=== PATIENT | male | born 1965 | race Caucasian/White ===

== ENCOUNTER 2022-04-19 16:31 | Day surgery (SDC) | payer BC ==
[~2022-04-19] VITALS: Ht 193 cm; Wt 192.0 kg
[2022-04-19] VITALS (8 sets, daily range): BP systolic 84–114; BP diastolic 43–82
--- NOTE | 2022-04-19 17:22 | ED Abdominal Pain ---
General Chief Complaint: Abdominal/GI Problems Stated Complaint: RLQ PAIN Nursing Triage Note: SENT HERE FROM [facility] WITH APPENDICIITS. PT STATES THEY JUST WEIGHED HIM AT [facility] AT 424# Source of Information: Patient Exam Limitations: No Limitations History of Present Illness Date Seen by Provider: Apr 19, 2022 Time Seen by Provider: 16:40 Initial Comments This is a well-appearing 56-year-old male who was referred to the emergency department from [facility] for acute appendicitis. Patient states that he started developing diarrhea on 04/16/2022 that progressed to pain in his right lower quadrant. He had outpatient imaging and labs and was found to have appendicitis. Last solid food yesterday, did drink small sip of water en- route to hospital. Allergies and Home Medications Allergies Coded Allergies: No Known Drug Allergies (Unverified , 04/19/22) Patient Home Medication List Home Medication List Reviewed: Yes Amoxicillin/Potassium Clav (Augmentin 500-125 Tablet) 500 Mg-125 Mg Tablet, 1 EACH PO TID Prescribed by: CHRISTINA ERWIN on 04/19/221955 Hydrocodone Bit/Acetaminophen (HYDROcodone/APAP 10/325 TABLET) 1 Ea Tab, 1 TAB PO Q6H Prescribed by: CHRISTINA ERWIN on 04/19/221951 Review of Systems Review of Systems Constitutional: see HPI Gastrointestinal: See HPI Past Udxpvae-Lzusds-Gnlnap Hx Patient Social History Tobacco Use?: Yes Tobacco type used: Cigarettes Smoking Status: Current Everyday Smoker Substance use?: No Alcohol Use?: Yes Alcohol type: Beer Alcohol Frequency: Couple times a week Immunizations Up To Date First/Initial COVID19 Vaccinat: UNKNOWN COVID19 Vaccine Child Welfare Specialist: UNKNOWN Physical Exam Vital Signs Capillary Refill : Less Than 3 Seconds Height/Weight/BMI Height: '" Weight: lbs. oz. kg; 51.00 BMI Method: General Appearance: WD/WN, no apparent distress, obese HEENT: PERRL/EOMI, normal ENT inspection Neck: full range of motion, normal inspection Respiratory: lungs clear, normal breath sounds, no respiratory distress Cardiovascular: regular rate, rhythm, no murmur Gastrointestinal: normal bowel sounds, soft, rebound Extremities: normal range of motion, normal inspection Back: normal inspection Neurologic/Psychiatric: no motor/sensory deficits, alert, normal mood/affect, oriented x 3 Skin: normal color, warm/dry Progress/Results/Core Measures Results/Orders Lab Results Laboratory Tests Test 04/19/22 17:39 Range/Units Sodium Level 131 L 135-145 MMOL/L Potassium Level 3.9 3.6-5.0 MMOL/L Chloride Level 97 L 98-107 MMOL/L Carbon Dioxide Level 21 21-32 MMOL/L Anion Gap 13 5-14 MMOL/L Blood Urea Nitrogen 25 H 7-18 MG/DL Creatinine 1.39 H 0.60-1.30 MG/DL Estimat Glomerular Filtration Rate 59 BUN/Creatinine Ratio 18 Glucose Level 123 H 70-105 MG/DL Calcium Level 9.6 8.5-10.1 MG/DL Corrected Calcium 9.4 8.5-10.1 MG/DL Total Bilirubin 1.7 H 0.1-1.0 MG/DL Aspartate Amino Transf (AST/SGOT) 29 5-34 U/L Alanine Aminotransferase (ALT/SGPT) 28 0-55 U/L Alkaline Phosphatase 58 40-136 U/L Total Protein 7.7 6.4-8.2 GM/DL Albumin 4.2 3.2-4.5 GM/DL My Orders Orders - ANDI GARCÍA ROOFING TECHNICIAN Ed Iv/Invasive Line Start (04/19/22 16:53) Comprehensive Metabolic Panel (04/19/22 17:35) Lidocaine/Epi Mpf 2% 1:200,000 (Xylocain (04/19/22 17:35) Vital Signs/I&O Blood Pressure Mean: 96 Progress Progress Note : Progress Note Review of chart and outpatient CT abd/pelvis: [facility], [place] NAME: HÉCTOR GIFFORD [facility] REC#: [id number] PT STATUS: REG CLI : 1965 PHYSICIAN: ROXY TUTTLE ROOFING TECHNICIAN ADMIT DATE: 04/19/22/RAD FS Signed Date of Exam:04/19/22 CT ABDOMEN/PELVIS WO PROCEDURE: CT abdomen and pelvis without contrast. TECHNIQUE: Multiple contiguous axial images were obtained through the abdomen and pelvis without the use of intravenous contrast. Auto Exposure Controls were utilized during the CT exam to meet ALARA standards for radiation dose reduction. INDICATION: Right lower quadrant pain. COMPARISON: I have no priors. FINDINGS: Appendix is prominent with some wall thickening. Its outer wall to outer wall diameter is maximal 17 mm. Within its lumen, there is an appendicolith measuring 8 mm. The appendix arises off the medial aspect of the caudal pole of the cecum distally, directed superomedial. No extraluminal gas is present. There is stranding and infiltration of the periappendiceal fat. The overall findings are consistent with acute appendicitis. There is no abscess or drainable fluid collection. Patient does have a tiny amount of pelvic free fluid, nonloculated, dependently. There is no free intraperitoneal air, and there is no resultant bowel obstruction. There are no opaque kidney stones. There is no hydroureteronephrosis. Liver, gallbladder, bile ducts, spleen, adrenals, and pancreas are all unremarkable. The aorta is nonaneurysmal. Bony structures and lung bases are nonacute. IMPRESSION: 1. Findings most consistent with acute appendicitis with an associated appendicolith and small volume pelvic free fluid, but no abscess, bowel obstruction, or free intraperitoneal air. 2. No other acute appearing abnormalities. Dictated by: Dictated on workstation # [id number] Dict: 04/19/22 1541 Trans: 04/19/22 1726 [id number] Interpreted by: ANNE-MARIE CATALAN Electronically signed by: ANNE-MARIE CATALAN 04/19/22 1726 Departure Communication (Admissions) Time/Spoke to Admitting Phy: 16:55 Dr. Erwin notified at this time. Impression Primary Impression: Appendicitis Disposition: ADMITTED INPATIENT Condition: Stable Admissions Decision to Admit Reason: Admit from ER (General) Decision to Admit/Date: Apr 19, 2022 Time/Decision to Admit Time: 16:48 Departure-Patient Inst. Referrals: [facility]/ (PCP) Primary Care Physician ROXY TUTTLE APRN (Family) Primary Care Physician Scripts Amoxicillin/Potassium Clav (Augmentin 500-125 Tablet) 500 Mg-125 Mg Tablet 1 EACH PO TID, #21 TAB Prov: CHRISTINA ERWIN DO 04/19/22 Hydrocodone Bit/Acetaminophen (HYDROcodone/APAP 10/325 TABLET) 1 Ea Tab 1 TAB PO Q6H for PAIN-MODERATE MDD 5, #20 TAB 0 Refills Prov: CHRISTINA ERWIN DO 04/19/22 ANDI GARCÍA APRN Apr 19, 2022 17:22
[2022-04-19] MEDS ORDERED: LIDOCAINE/EPI 2% 1:200,00 (XYLOCAINE) 20 ML VIAL ONE (17:35)
[2022-04-19] MEDS ORDERED: KETOROLAC 30 MG/ML VIAL IVP ONE (17:45)
[2022-04-19 17:47] LABS: ALBUMIN 4.2 GM/DL (3.2-4.5)
[2022-04-19 17:48] LABS: POTASSIUM 3.9 MMOL/L (3.6-5.0)
[2022-04-19 17:49] LABS: CALCIUM 9.6 MG/DL (8.5-10.1)
[2022-04-19 17:50] LABS: TOTAL PROTEIN 7.7 GM/DL (6.4-8.2)
[2022-04-19 17:52] LABS: BILIRUBIN,TOTAL 1.7 MG/DL (0.1-1.0)
[2022-04-19 17:54] LABS: CREATININE SERUM 1.39 MG/DL (0.60-1.30)
[2022-04-19] MEDS: LACTATED RINGERS 1,000 ML IV PRN ×3 (18:00→19:24)
--- NOTE | 2022-04-19 18:02 | Consultation - Surgery ---
History of Present Illness History of Present Illness Patient Consulted On(yana/time) 04/19/22 17:57 Time Seen by Provider: 17:46 History of Present Illness Surgery asked to consult for RLQ pain. HPI per ED: This is a well-appearing 56-year-old male who was referred to the emergency department from [facility] for acute appendicitis. Patient states that he started developing diarrhea on 04/16/2022 that progressed to pain in his right lower quadrant. When I spoke to pt he stated the pain started on Sunday in the RLQ, was sharp but not constant. He stated the pain was 6-7 out of 10 and he could not lay on right side. Pain then became constant and all across the lower abdomen, but it is only 5 out of 10. He denied any nausea or vomiting. Movement made pain worse and laying still made it better. Allergies and Home Medications Allergies Coded Allergies: No Known Drug Allergies (Unverified , 04/19/22) Patient Home Medication List Home Medication List Reviewed: Yes (Lisinopril, HCTZ, Meloxicam, Citalopram) Past Xhhrqhm-Fbuocj-Vwtzgu Hx Patient Social History Smoking Status: Current Everyday Smoker Alcohol Use?: Yes (Tequila 750ml on weekend) Have you traveled recently?: No Surgeries History of Surgeries: Yes ([place] teeth removal) Respiratory History of Respiratory Disorde: No Cardiovascular History of Cardiac Disorders: Yes Cardiac Disorders: Hypertension Neurological History of Neurological Disord: No Genitourinary History of Genitourinary Disor: No Gastrointestinal History of Gastrointestinal Di: Yes Gastrointestinal Disorders: Gastroesophageal Reflux Musculoskeletal History of Musculoskeletal Dis: Yes Musculoskeletal Disorders: Arthritis, Chronic Back Pain Endocrine History of Endocrine Disorders: No HEENT History of HEENT Disorders: No Loss of Vision: Denies Hearing Impairment: Denies Cancer History of Cancer: No Integumentary History of Skin or Integumenta: No Family Medical History Significant Family History: Hypertension (Mother and Father) Review of Systems-General Constitutional: No chills, No diaphoresis; fever, malaise EENTM: No blurred vision, No double vision, No mouth swelling, No epistaxis Respiratory: No cough, No dyspnea on exertion, No short of breath Cardiovascular: No chest pain, No palpitations Gastrointestinal: abdominal pain (RLQ); No jaundice; loss of appetite; No nausea, No vomiting Genitourinary: No dysuria, No frequency, No hematuria Musculoskeletal: back pain, joint pain, joint swelling Skin: No change in color, No change in hair/nails Psychiatric/Neurological: Anxiety, Depressed; Denies Seizure, Denies Tremors Physical Exam-General Problems Physical Exam Vital Signs Vital Signs - First Documented 04/19/22 16:40 Temp 37.7 Pulse 105 Resp 16 B/P (MAP) 134/77 (96) Pulse Ox 94 O2 Delivery Room Air Capillary Refill : Less Than 3 Seconds General Appearance: no apparent distress, obese (super morbidly obese) Eyes: Bilateral Eye PERRL, Bilateral Eye EOMI HEENT: pharynx normal; No scleral icterus (R), No scleral icterus (L) Neck: non-tender, supple Respiratory: lungs clear, normal breath sounds, no respiratory distress, no accessory muscle use Cardiovascular: regular rate, rhythm, no murmur Gastrointestinal: soft, no organomegaly, tenderness, hernia (small umbilical) Back: no CVA tenderness, no vertebral tenderness Extremities: non-tender, no pedal edema, no calf tenderness Neurologic/Psychiatric: powder blender and pourer II-XII nml as tested, alert, normal mood/affect, oriented x 3 Skin: normal color, warm/dry Lymphatic: no adenopathy (neck, axilla or groin) Data Review Labs Laboratory Tests 04/19/22 17:39: Sodium Level 131L, Potassium Level 3.9, Chloride Level 97L, Carbon Dioxide Level 21, Anion Gap 13, Blood Urea Nitrogen 25H, Creatinine 1.39H, Estimat Glomerular Filtration Rate 59, BUN/Creatinine Ratio 18, Glucose Level 123H, Calcium Level 9.6, Corrected Calcium 9.4, Total Bilirubin 1.7H, Aspartate Amino Transf (AST/SGOT) 29, Alkaline Phosphatase 58, Total Protein 7.7, Albumin 4.2 Radiology Date of Exam:04/19/22 CT ABDOMEN/PELVIS WO PROCEDURE: CT abdomen and pelvis without contrast. TECHNIQUE: Multiple contiguous axial images were obtained through the abdomen and pelvis without the use of intravenous contrast. Auto Exposure Controls were utilized during the CT exam to meet ALARA standards for radiation dose reduction. INDICATION: Right lower quadrant pain. COMPARISON: I have no priors. FINDINGS: Appendix is prominent with some wall thickening. Its outer wall to outer wall diameter is maximal 17 mm. Within its lumen, there is an appendicolith measuring 8 mm. The appendix arises off the medial aspect of the caudal pole of the cecum distally, directed superomedial. No extraluminal gas is present. There is stranding and infiltration of the periappendiceal fat. The overall findings are consistent with acute appendicitis. There is no abscess or drainable fluid collection. Patient does have a tiny amount of pelvic free fluid, nonloculated, dependently. There is no free intraperitoneal air, and there is no resultant bowel obstruction. There are no opaque kidney stones. There is no hydroureteronephrosis. Liver, gallbladder, bile ducts, spleen, adrenals, and pancreas are all unremarkable. The aorta is nonaneurysmal. Bony structures and lung bases are nonacute. IMPRESSION: 1. Findings most consistent with acute appendicitis with an associated appendicolith and small volume pelvic free fluid, but no abscess, bowel obstruction, or free intraperitoneal air. 2. No other acute appearing abnormalities. Dictated by: Dictated on workstation # [id number] Dict: 04/19/22 1541 Trans: 04/19/22 1726 [id number] Interpreted by: ANNE-MARIE CATALAN Electronically signed by: ANNE-MARIE CATALAN 04/19/22 1726 Assessment/Plan Assessment/Plan Assessment/Plan Acute Appendicitis I reviewed the CT and discussed case with ER provider. He has an appendicolith and significant inflammation around the appendix; this is definitely acute appendicitis. Patient needs an appendectomy, would plan Laparoscopic Appendectomy possible open. Will get consent, start IV fluids, IV ABX data collection technician to OR, pain meds and anti-emetics as needed. Went over risks and complications not limited to pain, bleeding, infection, scar, damage to bowel and need for further procedure. All questions answered to his and his 's satisfaction. CHRISTINA ERWIN DO Apr 19, 2022 18:02
[2022-04-19] MEDS ORDERED: SEVOFLURANE (ULTANE) 15 ML INHAL SOLN ONE ×2 (18:11→19:43)
[2022-04-19] MEDS ORDERED: LIDOCAINE PF 2% 5 ML (XYLOCAINE) VIAL ONE (18:11)
[2022-04-19] MEDS ORDERED: proPOfol 200 MG/20 ML (DIPRIVAN) VIAL IV ONE (18:11)
[2022-04-19] MEDS ORDERED: ROCURONIUM 50 MG/5 ML (ZEMURON) VIAL IV ONE ×2 (18:11→18:45)
[2022-04-19] MEDS ORDERED: fentaNYL INJ 250 MCG/5 ML AMP ONE (18:12)
[2022-04-19] MEDS ORDERED: MIDAZOLAM 2 MG/2 ML (VERSED) VIAL ONE (18:12)
[2022-04-19] MEDS ORDERED: ceFAZolin INJECTION 3,000 MG ONE (18:14)
[2022-04-19] MEDS ORDERED: ceFAZolin INJECTION 1,000 MG VIAL IV ONE ×2 (18:15)
[2022-04-19] MEDS ORDERED: NEOSTIGMINE (BLOXIVERZ ) 1 MG/1ML 10 ML VIAL ONE (18:57)
[2022-04-19] MEDS ORDERED: GLYCOPYRROLATE 0.2 MG/ML (ROBINUL) 2 ML VIAL ONE (18:57)
--- NOTE | 2022-04-19 19:51 | Progress Note-Post Operative ---
Post-Operative Progess Note Surgeon (s)/Electrician'S Assistant (s) Surgeon CHRISTINA ERWIN DO Electrician'S Assistant: SAI Chao Pre-Operative Diagnosis Acute Appendicitis Post-Operative Diagnosis Perforated appendicitis Procedure & Operative Findings Date of Procedure 04/19/22 Procedure Performed/Findings PROCEDURE: Laparoscopic appendectomy. COMPLICATIONS: None. INDICATIONS: The patient is a 56 year old male who has been having right lower quadrant abdominal pain. Patient's exam consistent with appendicitis. I discussed risk and benefits of laparoscopic appendectomy and all indicated procedures. The patient understands the risks and benefits and wishes to proceed. Consent was signed on the chart. DESCRIPTION OF PROCEDURE: The patient was taken to the operating suite, prepped and draped in a sterile fashion. Timeout was performed. Local anesthetic was infiltrated just above the umbilicus and 11-blade scalpel was used to make a skin incision. Cautery was used to dissect down to the fascia and scored. Kochers were used to grasp and elevate it and the abdomen was then entered. A 0 Vicryl was placed in a [id number] fashion for closure at the end of the case. The balloon trocar was inserted into the abdomen and pneumoperitoneum was achieved. Under direct visualization of the laparoscope, a 5 mm trocar was placed in the suprapubic region and a 5 mm trocar was placed in the left lower quadrant. Appendix was located, under omentum, terminal ileum and cecum. Noted fibrinous material. While moving everything aside encountered small amout of fecal material and then found hole in appendix. The base of the appendix was dissected around. Once at the base an Endo-SILVERIO 2.5 stapler was then fired across the base of the appendix. The mesoappendix was then divided. It was then placed in an Endobag and removed through the 12 mm trocar site. The abdomen was then copiously irrigated and suctioned. No other pathology noted. Elected to place a YULIA drain in the right colic gutter and brought it out through the supra-pubic incision. It was sutured in place with a 2-0 Nylon suture. The abdomen was then desufflated and the trocars were removed. The 0 Vicryl placed at the beginning of the case was then tied closing the 12 mm fascial defect. The skin was then closed using 4-0 Monocryl in a subcuticular fashion. The abdomen was then washed and dried and Skin Affix was placed over the incisions. The patient tolerated the procedure well without any complications and was taken to the recovery room in stable condition. Proximal portion of appendix was not great tissue and the cecum had a lot of fibrinous material on it. It looked ok, but it is mildly concerning. Anesthesia Type GET Estimated Blood Loss Estimated blood loss (mL): scant Specimens/Packing Specimens Removed appendix CHRISTINA ERWIN DO Apr 19, 2022 19:51
[2022-04-19] MEDS ORDERED: ACHYD1T PO (19:52)
--- NOTE | 2022-04-19 19:53 | Discharge Inst-Surgical ---
Discharge Inst-Surgical Depart Medication/Instructions New, Converted or Re-Newed RX: Transmitted to Pharmacy Patient Instructions Follow up Appt: Make appointment for 1 week. [phone] Instructions: No lifting greater than 20 pounds. No strenuous activity. May shower in 24 hours, no tub bath or soaking. Use incentive spirometer at home as directed. No Smoking Skin/Wound Care: May remove bandages in am. You need to leave the Dermabond on incision it will fall off on it's own. Symptoms to Report: Appetite Changes, Extremity Discoloration, Numbness/Tingling, Swelling Increased, Bleeding Excessive, Eyesight Changes, Pain Increased, Urine Color Change, Constipation(Persistent), Fever over 101 degree F, Pain/Pressure in chest, Urinating Difficulty, Cough Up/Vomit Blood, Heart Beat Irreg/Pounding, Pain/Pressure in jaw, Cramps in feet or legs, Lightheadedness, Pain/Pressure in shoulder, Diarrhea(Persistent), Memory Changes Suddenly, Questions/Concerns, Weight gain consecutive days, Dizziness/Fainting, Nausea/Vomiting, Shortness of Breath, Weight gain over 2 pounds If questions or concerns contact your physician Or seek help at emergency department. Activity Activity as Tolerated: Yes Activity Instructions: Avoid Stress to Incision Driving Instructions: No Driving/Refer to Dr. Mann Discharge Diet: No Restrictions Diet After 24 Hours: Clear Liquid if Nauseous If Any Problems/Questions/Issu: Contact Your Physician, Go to Emergency Room Skin/Wound Care Infection Signs and Symptoms: Increased Redness, Foul Odor of Wound, Increased Drainage, Skin Itchy or Has a Rash, Increased Swelling, Temperature Above 101 F Wound Care Comment: heating pad to shoulder or neck tonight for pain. YULIA drain teaching Bathing Instructions: Shower Stitches/Star/Dermabond Dis: Dermabond CHRISTINA ERWIN DO Apr 19, 2022 19:53
[2022-04-19] MEDS ORDERED: AMOX-355 PO (19:56)
[2022-04-19] MEDS ORDERED: MEPERIDINE (DEMEROL) INJ 50 MG/ML IVP ONE (20:00)
[2022-04-19] MEDS ORDERED: ONDANSETRON 4 MG/2 ML (SDV) Z0FRAN IVP PRN ×2 (20:00)
[2022-04-19] MEDS ORDERED: HYDROmorphone 2 MG/ML VIAL (DILAUDID) IV ONE (20:00)
[2022-04-19] MEDS ORDERED: morphine INJ 10 MG/ML 1ML (SYR OR VIAL) IVP ONE (20:00)
--- NOTE | 2022-04-19 20:01 | Anesthesia-General Post-Op ---
General Patient Condition Mental Status/LOC: Same as Preop Cardiovascular: Satisfactory Nausea/Vomiting: Absent Respiratory: Satisfactory Pain: Controlled Complications: Absent Post Op Complications Complications None Follow Up Care/Instructions Patient Instructions None needed. Anesthesia/Patient Condition Patient Condition Patient is doing well, no complaints, stable vital signs, no apparent adverse anesthesia problems. No complications reported per nursing. SHWETHA MCNAIR CRNA Apr 19, 2022 20:01
[2022-04-19] MEDS ORDERED: morphine INJ 10 MG/ML 1ML (SYR OR VIAL) ONE (20:23)
[2022-04-19] MEDS: metroNIDAZOLE 500MG/100ML IVPB 100 ML IV SCH (21:48)
[2022-04-19] MEDS: LACTATED RINGERS 1,000 ML IV SCH (23:36)
[2022-04-20 00:47] VITALS: BP 120/58
[2022-04-20] MEDS: LACTATED RINGERS 1,000 ML IV SCH (02:28)
[2022-04-20] MEDS ORDERED: ceFAZolin INJECTION 2,000 MG in NS (IVPB) 50 ML IV SCH (02:30)
[2022-04-20 04:06] VITALS: BP 107/51
[2022-04-20 07:59] VITALS: BP 104/51
[2022-04-20] MEDS ORDERED: PANTOPRAZOLE 40 MG (PROTONIX) VIAL IVP SCH (09:00)
--- NOTE | 2022-04-20 09:07 | Progress Note - Surgery ---
LAURYN HOOD 04/20/22 0907: Subjective Date Seen by a Provider: Apr 20, 2022 Time Seen by a Provider: 07:50 Subjective/Events-last exam Pt s/p appendectomy, resting comfortably in bed. States his pain is controlled at 6/10, which increases with coughing. States the cough just started today and is non productive. He was able to eat a large breakfast this am without difficulty. He has not passed gas or had a bowel movement yet, however he states that is not uncommon for him. He is urinating normally and had drainage from YULIA drain. He denies fever, chills, N/V/D, chest pain, SOB, or any other complaints. Review of Systems General: No Chills, No Night Sweats HEENT: No Head Aches Pulmonary: No Dyspnea; Cough Cardiovascular: No: Chest Pain, Orthopnea Gastrointestinal: Abdominal Pain; No: Nausea, Vomiting, Diarrhea, Constipation, Melena, Hematochezia Genitourinary: No Retention Objective Exam Vital Signs Date Time Temp Pulse Resp B/P (MAP) Pulse Ox O2 Delivery O2 Flow Rate FiO2 04/20/22 07:59 37.0 61 18 104/51 (68) 95 Nasal Cannula 3.00 04/20/22 04:06 36.5 61 20 107/51 (69) 98 Nasal Cannula 3.00 04/20/22 00:47 37.8 78 20 120/58 (78) 95 Nasal Cannula 3.00 04/19/22 21:37 98 Nasal Cannula 3.00 04/19/22 21:17 36.7 86 18 103/69 (80) 92 Nasal Cannula 3.00 04/19/22 21:05 Nasal Cannula 3.00 04/19/22 20:55 Nasal Cannula 3.00 04/19/22 20:47 16 107/55 (72) 94 Nasal Cannula 3.00 04/19/22 20:40 36.4 16 107/61 (76) 95 Nasal Cannula 3.00 04/19/22 20:30 OxyMask 10.00 04/19/22 20:30 15 105/63 (77) 96 OxyMask 10.00 04/19/22 20:20 16 114/82 (93) 97 OxyMask 10.00 04/19/22 20:10 18 100/59 (73) 97 OxyMask 10.00 04/19/22 20:05 18 104/43 (63) 97 OxyMask 10.00 04/19/22 19:57 36.1 16 84/52 (63) 94 OxyMask 10.00 04/19/22 19:57 OxyMask 10.00 04/19/22 17:50 89 16 103/66 93 Room Air 04/19/22 16:40 37.7 105 16 134/77 (96) 94 Room Air I & O 04/20/22 07:00 Intake Total 4580 ml Output Total 335 ml Balance 4245 ml Capillary Refill : Less Than 3 Seconds General Appearance: No Apparent Distress, Obese HEENT: PERRL/EOMI, Moist Mucous Membranes Neck: Non Tender, Supple Respiratory: Lungs Clear, Normal Breath Sounds, No Accessory Muscle Use, No Respiratory Distress Cardiovascular: Regular Rate, Rhythm, No Gallop, No Murmur Peripheral Pulses: 2+ Radial Pulses (R), 2+ Radial Pulses (L) Gastrointestinal: normal bowel sounds, soft, distended (minimal distension); No guarding, No rebound; tenderness (mild diffuse tenderness), hernia (small umbilical) Extremity: Non Tender, No Calf Tenderness, No Pedal Edema Neurologic/Psychiatric: Alert, Oriented x3, Normal Mood/Affect Skin: Normal Color, Warm/Dry (of supraclavicular or axillary LNs) Results Lab Laboratory Tests 04/19/22 17:39: Sodium Level 131L, Potassium Level 3.9, Chloride Level 97L, Carbon Dioxide Level 21, Anion Gap 13, Blood Urea Nitrogen 25H, Creatinine 1.39H, Estimat Glomerular Filtration Rate 59, BUN/Creatinine Ratio 18, Glucose Level 123H, Calcium Level 9.6, Corrected Calcium 9.4, Total Bilirubin 1.7H, Aspartate Amino Transf (AST/SGOT) 29, Alanine Aminotransferase (ALT/SGPT) 28, Alkaline Phosphatase 58, Total Protein 7.7, Albumin 4.2 Assessment/Plan Assessment/Plan Assessment/Plan S/p laparoscopic appendectomy for acute Appendicitis Obesity Pt tolerated procedure well. YULIA drain in place with 75 ml of serosanguineous fluid. He is tolerating normal diet and pain well controlled. Continue abx and pain meds as needed. Pt is stable and ready to go home, I am agreeable with plan of d/c. Discuss reasons to return. Will see pt in x 1 week for f/u. MILLER SHAY DO 04/20/22 1427: Subjective Time Seen by a Provider: 10:24 Subjective/Events-last exam Pt seen and examined, states he is doing great and is ready to go home. Review of Systems General: No Chills, No Night Sweats Pulmonary: No Dyspnea; Cough Cardiovascular: No: Chest Pain Gastrointestinal: Abdominal Pain; No: Nausea, Vomiting Objective Exam General Appearance: No Apparent Distress, Obese HEENT: Moist Mucous Membranes Respiratory: Lungs Clear, Normal Breath Sounds, No Accessory Muscle Use, No Respiratory Distress Cardiovascular: Regular Rate, Rhythm, No Murmur Gastrointestinal: soft, distended (minimal distension); No guarding, No rebound; tenderness (mild diffuse tenderness), hernia (small umbilical) Assessment/Plan Assessment/Plan Assessment/Plan S/p laparoscopic appendectomy for acute Appendicitis Obesity Pt tolerated procedure well. YULIA drain in place with 75 ml of serosanguineous fluid. He is tolerating normal diet and pain well controlled. Continue abx and pain meds as needed. Pt is stable and ready to go home, I am agreeable with plan of d/c. Discuss reasons to return. Will see pt in x 1 week for f/u. Supervisory-Addendum Brief Verification & Attestation Participated in pt care: history, MDM, physical Personally performed: exam, history, MDM, supervision of care Care discussed with: Medical Student Procedures: n/a Verification and Attestation of Medical Student E/M Service A medical student performed and documented this service. I then reviewed and verified all information documented by the medical student and made modifications to such information, when appropriate. I personally performed a physical exam, medical decision making and then discussed any differences between the notes and made revisions as necessary to create one note. Miller Shay , 04/20/22 , 14:26 LAURYN HOOD Apr 20, 2022 09:07 MILLER SHAY DO Apr 20, 2022 14:27
[2022-04-20] MEDS: metroNIDAZOLE 500MG/100ML IVPB 100 ML IV SCH (10:02)
[2022-04-20 11:30] VITALS: BP 104/51
== END 2022-04-20 11:30 | disposition home or self-care (01) ==
LOC: EDUNIT# 16:31 → ER 16:33 → SDC 17:44 → 4TH 20:55 → SDC 04-20 11:30
PROVIDERS: ATTEND Surgery
DX: K35.32 Acute appendicitis with perforation, localized peritonitis, and gangrene, without abscess (principal); F17.210 Nicotine dependence, cigarettes, uncomplicated; E66.01 Morbid (severe) obesity due to excess calories; Z68.43 Body mass index [BMI] 50.0-59.9, adult; G47.33 Obstructive sleep apnea (adult) (pediatric); Z28.310 Unvaccinated for COVID-19
CPT/HCPCS: 36415; 80053; 94664; 94760

== ENCOUNTER → 2022-04-19 | Outpatient (CLI) | payer BC ==
[~2022-04-19] MED LIST: ACHYD1T PO; AMOX-355 PO
[2022-04-19 15:18] LABS: BASOPHILS % (AUTO) 0 % (0-10); EOSINOPHILS # (AUTO) 0.1 10^3/uL (0.0-0.3); EOSINOPHILS % (AUTO) 1 % (0-10); HEMATOCRIT 44 % (40-54); HEMOGLOBIN 14.6 g/dL (13.3-17.7); LYMPHOCYTES # (AUTO) 1.5 10^3/uL (1.0-4.0); LYMPHOCYTES % (AUTO) 10 % (12-44); MEAN CORPUSCULAR HEMOGLOBIN 31 pg (25-34); MEAN CORPUSCULAR HGB CONC 33 g/dL (32-36); MEAN CORPUSCULAR VOLUME 92 fL (80-99); MEAN PLATELET VOLUME 12.1 fL (9.0-12.2); MONOCYTES # (AUTO) 1.2 10^3/uL (0.0-1.0); MONOCYTES % (AUTO) 8 % (0-12); NEUTROPHILS # (AUTO) 11.7 10^3/uL (1.8-7.8); NEUTROPHILS % (AUTO) 80 % (42-75); PLATELET COUNT 131 10^3/uL (130-400); WHITE BLOOD COUNT 14.6 10^3/uL (4.3-11.0)
[2022-04-19 15:29] LABS: BAND NEUTROPHILS 2 %; NEUTROPHILS % (MANUAL) 80 %
[2022-04-19 15:30] LABS: EOSINOPHILS % (MANUAL) 2 %; LYMPHOCYTES % (MANUAL) 8 %; MONOCYTES % (MANUAL) 8 %; PLATELET ESTIMATE NORMAL; RBC MORPH NORMAL
== END ==
LOC: LAB FS 15:06 → MERGE 15:06
PROVIDERS: ATTEND Nurse Practitioner Family
DX: R10.31 Right lower quadrant pain (principal)
CPT/HCPCS: 36415; 85007; 85027

== ENCOUNTER → 2022-04-19 | Outpatient (CLI) | payer BC ==
--- NOTE | 2022-04-19 15:54 | Diagnostic Imaging Report ---
PROCEDURE: CT abdomen and pelvis without contrast. TECHNIQUE: Multiple contiguous axial images were obtained through the abdomen and pelvis without the use of intravenous contrast. Auto Exposure Controls were utilized during the CT exam to meet ALARA standards for radiation dose reduction. INDICATION: Right lower quadrant pain. COMPARISON: I have no priors. FINDINGS: Appendix is prominent with some wall thickening. Its outer wall to outer wall diameter is maximal 17 mm. Within its lumen, there is an appendicolith measuring 8 mm. The appendix arises off the medial aspect of the caudal pole of the cecum distally, directed superomedial. No extraluminal gas is present. There is stranding and infiltration of the periappendiceal fat. The overall findings are consistent with acute appendicitis. There is no abscess or drainable fluid collection. Patient does have a tiny amount of pelvic free fluid, nonloculated, dependently. There is no free intraperitoneal air, and there is no resultant bowel obstruction. There are no opaque kidney stones. There is no hydroureteronephrosis. Liver, gallbladder, bile ducts, spleen, adrenals, and pancreas are all unremarkable. The aorta is nonaneurysmal. Bony structures and lung bases are nonacute. IMPRESSION: 1. Findings most consistent with acute appendicitis with an associated appendicolith and small volume pelvic free fluid, but no abscess, bowel obstruction, or free intraperitoneal air. 2. No other acute appearing abnormalities. Dictated by: Dictated on workstation # [id number]
== END ==
LOC: RAD FS 15:16
PROVIDERS: ATTEND Nurse Practitioner Family
DX: R10.31 Right lower quadrant pain (principal)
CPT/HCPCS: 74176